=== PATIENT | female | born 1965 | race African-American/Black ===

== ENCOUNTER 2017-02-09 05:40 | Day surgery (SDC) | payer OTHER ==
[2017-02-09] VITALS (9 sets, daily range): BP systolic 120–159; BP diastolic 65–82; PULSE 81–95; RESP 15–23; Ht 162.6 cm; Wt 98.4 kg
[~2017-02-09] VITALS: Ht 162.6 cm; Wt 98.4 kg
[~2017-02-09 05:40] MED LIST: BUPIVACAINE 0.5% 30 ML VIAL INJ ONE; DEXAMETHASONE 4 MG/ML 1 ML INJ INJ ONE; IND50 PO; INSU100C SC; LANT3I SC; LIDOCAINE 1% (MPF) 30 ML INJ INJ ONE; MESA1.2T PO; METF500T4 PO; QUET300T5 PO; TEMA30CA PO; TRAM50TA2 PO
[2017-02-09] MEDS ORDERED: CEFAZOLIN 1 GM/50 ML (PMX) 50 ML IVPB SCH (06:30)
[2017-02-09] MEDS ORDERED: LIDOCAINE 1% (STERILE-PAK) 30 ML INJ ONE (07:09)
[2017-02-09] MEDS ORDERED: DEXAMETHASONE 4 MG/ML 1 ML INJ ONE (07:09)
[2017-02-09] MEDS ORDERED: BUPIVACAINE 0.5% (SDV) 30 ML INJ ONE (07:10)
[2017-02-09] MEDS ORDERED: INSU200I SQ (07:16)
[2017-02-09] MEDS ORDERED: INSU100I33 SC ×2 (07:16→07:23)
--- NOTE | 2017-02-09 07:18 | HPN ---
Date/Time of Note Date/Time of Note DATE: 02/09/17 TIME: 07:17 Interval H&P Admission Note Pt. seen H&P reviewed: No system changes EMANUEL GRAJEDA DPM Feb 09, 2017 07:18
[2017-02-09] MEDS ORDERED: MIDAZOLAM 1 MG/ML 2 ML INJ ONE (07:28)
[2017-02-09] MEDS ORDERED: PROPOFOL 20 ML ONE (07:28)
[2017-02-09] MEDS ORDERED: FENTAnyl 50 MCG/ML VIAL ONE (07:29)
[2017-02-09] MEDS ORDERED: CEFAZOLIN 1 GM INJ ONE (07:51)
--- NOTE | 2017-02-09 08:27 | SIPON ---
Date/Time of Note Date/Time of Note DATE: 02/09/17 TIME: 08:25 Operative Report Preoperative Diagnosis hallux limitus, bunion right foot Postoperative Diagnosis same Operation/Procedure Performed mecca vbunionectomy, resection of exostosis prox phal lt foot Surgeon see signature line insurance assistant none Anesthesia: MAC Estimated blood loss: none Transfusion Required none Specimen bone exostosis Grafts/Implants none Complications none EMANUEL GRAJEDA DPM Feb 09, 2017 08:27
[2017-02-09] MEDS ORDERED: hydrALAzine 20 MG INJ IV PRN (08:30)
[2017-02-09] MEDS ORDERED: MEPERIDINE 25 MG INJ IV PRN (08:30)
[2017-02-09] MEDS ORDERED: EPHEDrine SULFATE 50 MG/5 ML SYG IV PRN (08:30)
[2017-02-09] MEDS ORDERED: LABETALOL HCL 20MG INJ IV PRN (08:30)
[2017-02-09] MEDS ORDERED: ONDANSETRON 4 MG INJ IV PRN (08:30)
[2017-02-09] MEDS ORDERED: MIDAZOLAM 1 MG/ML 2 ML INJ IV PRN (08:30)
[2017-02-09] MEDS ORDERED: METOCLOPRAMIDE 10 MG INJ IV PRN (08:30)
[2017-02-09] MEDS ORDERED: DIPHENHYDRAMINE 50 MG INJ IV PRN (08:30)
[2017-02-09] MEDS ORDERED: OXYCODONE/ACETAMINOPHEN (5/325) TAB PO PRN ×2 (08:30)
[2017-02-09] MEDS ORDERED: FENTAnyl 50 MCG/ML VIAL IV PRN ×3 (08:30)
--- NOTE | 2017-02-09 12:04 | OPR ---
DATE OF OPERATION: 02/09/2017 PREOPERATIVE DIAGNOSIS: Hallux limitus and bunion deformity, right foot. POSTOPERATIVE DIAGNOSIS: Hallux limitus and bunion deformity, right foot. PROCEDURE: Kim bunionectomy right foot and resection of the bony exostosis from first metatarsal and base of the proximal phalanx. SURGEON: Waldo Camarillo DPM OPERATION PERFORMED: Patient was brought to the OR and placed in the supine position on the operating room table. Anesthesia was achieved using MAC and local with 20 mL of lidocaine 1 percent plain. The foot was then prepped and draped in the usual sterile fashion and tourniquet was inflated to 250 mmHg. Attention was directed to the dorsal aspect of the first MPJ right foot. A 4 cm linear incision was made over the first MPJ. The incision was deepened in the same plane using sharp and blunt dissection. Attention was given to the neurovascular structures and was retracted from the surgical site. Next, incision was made through the capsular layer dorsally. The head of the first metatarsal bone was released from surrounding soft tissue and the prominent bone medial aspect of the first metatarsal bone was resected using a bone saw. Also significant bone exostosis was noticed on the dorsal aspect of the first metatarsal bone and resected with a bone saw. Also some exostosis from the base of the proximal phalanx was dorsally resected. The area was then rasped smooth and flushed with a copious amount of normal saline. Next capsular closure was obtained using 3-0 Vicryl, subcutaneous closure using 4-0 Vicryl and skin closure using miki. The surgical site was then infiltrated with 5 mL of 0.5 percent Marcaine plain and 1 mL of Decadron. The surgical site was covered with Adaptic, 4 x 4 and Kerlix in a compressive fashion. Tourniquet was deflated and immediate capillary refill was noted to all digits of the right foot. The patient tolerated anesthesia and procedure well and left the OR for recovery room with vital signs stable and neurovascular status intact. Postop written and oral postop instructions were given to the patient. Patient to follow up the office in 2 days. Dictated By: Waldo Camarillo DPM /elissa/modesta /Document#: [id number]
== END 2017-02-09 10:25 | disposition home or self-care (01) ==
LOC: SDS 05:40
PROVIDERS: ATTEND Podiatrist
DX: M20.5X1 Other deformities of toe(s) (acquired), right foot (principal)
CPT/HCPCS: 28299; 82962; 88304; 88311; J0690; J1100; J2250; J3010; Z7512; Z7610

== ENCOUNTER 2018-10-21 08:14 | Emergency (ER) | payer OTHER ==
[~2018-10-21] VITALS: Ht 162.6 cm; Wt 102.5 kg
[~2018-10-21 08:14] MED LIST changes: -BUPIVACAINE 0.5% 30 ML VIAL INJ ONE; -DEXAMETHASONE 4 MG/ML 1 ML INJ INJ ONE; -IND50 PO; -INSU100C SC; +INSU100I33 SC; +INSU200I SQ; -LANT3I SC; -LIDOCAINE 1% (MPF) 30 ML INJ INJ ONE; +METF500T24 PO; -METF500T4 PO; -TEMA30CA PO; -TRAM50TA2 PO
[2018-10-21 08:19] VITALS: BP 175/86; PULSE 93; RESP 20; Ht 162.6 cm; Wt 102.5 kg
[2018-10-21] MEDS ORDERED: METF-849 PO (08:50)
[2018-10-21] MEDS ORDERED: MESA1.2T3 PO (08:50)
[2018-10-21] MEDS ORDERED: INSU100I33 SC (08:50)
--- NOTE | 2018-10-21 09:05 | ERD ---
ER Documentation Chief Complaint Chief Complaint needs medication refill PCP HPI 53-year-old female presenting for medication refill. Patient's PCP patient is currently taking Basaglar 100 units, 70 units QAM & 10 units QPM. Metformin 500mg BID and Mesalamin 1.2 gm BID. Patient history of Crohn's, diabetes and depressions. NKDA. Surgical history is myomectomy and hysterectomy. Social history smokes a pack a day. ROS All systems reviewed and are negative except as per history of present illness. Medications Home Meds Active Scripts Mesalamine (Mesalamine) 1.2 Gm Tablet., 1.2 GM PO BID, #60 Prov:FRANCISCO HANSEN PA-C 10/21/18 Metformin* (Glucophage*) 500 Mg Tab, 500 MG PO BID, #60 TAB Prov:FRANCISCO HANSEN PA-C 10/21/18 Insulin Glargine,Hum.rec.anlog (Basaglar Kwikpen U-100) 100 Unit/1 Ml Insuln.pen, 70 UNIT SC DAILY, #10 EA Prov:FRANCISCO HANSEN PA-C 10/21/18 Reported Medications Insulin Glargine,Hum.rec.anlog (Basaglar Kwikpen U-100) 100 Unit/1 Ml Insuln.pen, 10 UNIT SC AC DINNER 02/09/17 Insulin Glargine,Hum.rec.anlog (Basaglar Kwikpen U-100) 100 Unit/1 Ml Insuln.pen, 68 UNIT SC AC BREAKFAST 02/09/17 Insulin Lispro (Humalog Kwikpen) 200 Unit/1 Ml Insuln.pen, 16 UNIT SQ TID, EA 02/09/17 Mesalamine* (Lialda*) 1.2 G Tablet.dr, 1.2 GM PO BID, TAB 06/30/15 Quetiapine Fumarate* (Seroquel* XR) 300 Mg Tab.sr.24h, 300 MG PO QHS 10/09/11 Metformin Hcl* (Metformin Hcl*) 500 Mg Tablet, 500 MG PO BID, 0 Refills 01/14/11 Allergies Allergies: Coded Allergies: No Known Allergies (Verified Allergy, Unknown, 02/09/17) PMhx/Soc History of Surgery: Yes (TAHBSO, MYOMECTOMY) Anesthesia Reaction: No Hx Neurological Disorder: Yes Hx Respiratory Disorders: Yes Hx Cardiac Disorders: Yes Hx Psychiatric Problems: No Hx Miscellaneous Medical Probl: Yes (CHRONS DSE) Hx Alcohol Use: No Hx Substance Use: No Hx Tobacco Use: Yes FmHx Family History: No diabetes, No coronary disease, No other Physical Exam Vitals Vital Signs Date Temp Pulse Resp B/P (MAP) Pulse Ox O2 O2 Flow FiO2 Time Delivery Rate 10/21/18 98.1 93 20 175/86 99 08:19 (115) Physical Exam GENERAL: The patient is well-appearing, well-nourished, in no acute distress HEENT: Atraumatic. Conjunctivae are pink. Pupils equal, round, and reactive to light. There is no scleral icterus. Tympanic membranes clear bilaterally. Oropharynx clear. NECK: C-spine is soft and supple. There is no meningismus. There is no cervical lymphadenopathy. CHEST: Clear to auscultation bilaterally. There are no rales, wheezes or rhonchi. HEART: Regular rate and rhythm. No murmurs, clicks, rubs or gallops. ABDOMEN:Soft, nontender and nondistended. Good bowel sounds. No rebound or guarding. No gross peritonitis. No gross organomegaly or masses. Procedures/MDM MDM: 53-year-old female presenting for medication refill. I have low suspicion for exacerbation of chronic illnesses at this time. Patient has been up-to-date on her medications. Patient is discharged with strict ER precautions and supportive medication refills. Patient is told symptoms change or worsen to return immediately to the ER. All questions answered at discharge Departure Diagnosis: Primary Impression: Encounter for medication refill Condition: Stable Patient Instructions: Taking Medicine Safely Referrals: [facility] YOU HAVE RECEIVED A MEDICAL SCREENING EXAM AND THE RESULTS INDICATE THAT YOU DO NOT HAVE A CONDITION THAT REQUIRES URGENT TREATMENT IN THE EMERGENCY DEPARTMENT. FURTHER EVALUATION AND TREATMENT OF YOUR CONDITION CAN WAIT UNTIL YOU ARE SEEN IN YOUR DOCTORS OFFICE WITHIN THE NEXT 1-2 DAYS. IT IS YOUR RESPONSIBILITY TO MAKE AN APPOINTMENT FOR FOLOW-UP CARE. IF YOU HAVE A PRIMARY DOCTOR --you should call your primary doctor and schedule an appointment IF YOU DO NOT HAVE A PRIMARY DOCTOR YOU CAN CALL OUR PHYSICIAN REFERRAL HOTLINE AT IF YOU CAN NOT AFFORD TO SEE A PHYSICIAN YOU CAN CHOSE FROM THE FOLLOWING [facility] [address] [facility] [address] [facility] [facility] [address] [facility] [address] [facility] [facility] [address] [facility]. [facility] [address] Additional Instructions: FOLLOW UP WITH YOUR PRIMARY CARE PHYSICIAN TOMORROW.Return to this facility if you are not improving as expected. FRANCISCO HANSEN PA-C Oct 21, 2018 09:05
== END 2018-10-21 09:43 | disposition home or self-care (01) ==
LOC: FTE 08:14
DX: Z76.0 Encounter for issue of repeat prescription (principal); E11.9 Type 2 diabetes mellitus without complications; F17.210 Nicotine dependence, cigarettes, uncomplicated; Z79.4 Long term (current) use of insulin
CPT/HCPCS: 99281

== ENCOUNTER → 2018-12-14 | Emergency (ER) | payer OTHER ==
[~2018-12-14] VITALS: Ht 165.1 cm; Wt 102.3 kg
[~2018-12-14] MED LIST changes: +BLOO-1030 MC; +INSU100C SQ; +MESA1.2T2 PO; +MESA1.2T3 PO; +METF-849 PO; +NAPR-985 PO
[2018-12-14 06:51] VITALS: PULSE 90; RESP 18; Ht 165.1 cm; Wt 102.3 kg
[2018-12-14 08:44] VITALS: BP 200/94
--- NOTE | 2018-12-14 10:27 | ERD ---
ER Documentation Chief Complaint Chief Complaint abdominal pain since yesterday, has been without insulin x 3 days HPI 53-year-old female presenting with abdominal pain that started yesterday. She states her abdominal pain is resolved however she is requesting prescription refills for her chronic medications as her primary doctor has passed. Medical history hypertension, diabetes and Crohn's disease. Surgical history hysterectomy. Social history smokes cigarettes a pack a day. ROS All systems reviewed and are negative except as per history of present illness. Medications Home Meds Active Scripts Blood Sugar Diagnostic (FREESTYLE LITE TEST STRIPS) 1 Each Strip, 1 EACH MC TID, #100 STRIP Prov:FRANCISCO HANSEN PA-C 12/14/18 Insulin Lispro (Humalog) 100 Unit/1 Ml Cartridge, 100 UNIT SQ TID for 60 Days, EA 16 units TID Prov:FRANCISCO HANSEN PA-C 12/14/18 Insulin Glargine,Hum.rec.anlog (Basaglar Kwikpen U-100) 100 Unit/1 Ml Insuln.pen, 100 UNIT SC BID for 60 Days, EA 70 units QAM and 10 units Qpm Prov:FRANCISCO HANSEN PA-C 12/14/18 Metformin* (Glucophage*) 500 Mg Tab, 500 MG PO BID, #60 TAB Prov:FRANCISCO HANSEN PA-C 12/14/18 Mesalamine (Lialda) 1.2 Gm Tablet.dr, 1.2 GM PO BID, #60 Prov:FRANCISCO HANSEN PA-C 12/14/18 Mesalamine (Mesalamine) 1.2 Gm Tablet.dr, 1.2 GM PO BID, #60 Prov:FRANCISCO HANSEN PA-C 10/21/18 Metformin* (Glucophage*) 500 Mg Tab, 500 MG PO BID, #60 TAB Prov:FRANCISCO HANSEN PA-C 10/21/18 Insulin Glargine,Hum.rec.anlog (Basaglar Kwikpen U-100) 100 Unit/1 Ml Insuln.pen, 70 UNIT SC DAILY, #10 EA Prov:FRANCISCO HANSEN PA-C 10/21/18 Reported Medications Insulin Glargine,Hum.rec.anlog (Basaglar Kwikpen U-100) 100 Unit/1 Ml Insuln.pen, 10 UNIT SC AC DINNER 02/09/17 Insulin Glargine,Hum.rec.anlog (Basaglar Kwikpen U-100) 100 Unit/1 Ml Insuln.pen, 68 UNIT SC AC BREAKFAST 02/09/17 Insulin Lispro (Humalog Kwikpen) 200 Unit/1 Ml Insuln.pen, 16 UNIT SQ TID, EA 02/09/17 Mesalamine* (Lialda*) 1.2 G Tablet.dr, 1.2 GM PO BID, TAB 06/30/15 Quetiapine Fumarate* (Seroquel* XR) 300 Mg Tab.sr.24h, 300 MG PO QHS 10/09/11 Metformin Hcl* (Metformin Hcl*) 500 Mg Tablet, 500 MG PO BID, 0 Refills 01/14/11 Allergies Allergies: Coded Allergies: No Known Allergies (Verified Allergy, Unknown, 02/09/17) PMhx/Soc History of Surgery: Yes (TAHBSO, MYOMECTOMY) Anesthesia Reaction: No Hx Neurological Disorder: Yes Hx Respiratory Disorders: Yes Hx Cardiac Disorders: Yes Hx Psychiatric Problems: No Hx Miscellaneous Medical Probl: Yes (CHRONS DSE) Hx Alcohol Use: No Hx Substance Use: No Hx Tobacco Use: Yes Smoking Status: Current every day smoker FmHx Family History: No diabetes, No coronary disease, No other Physical Exam Vitals Vital Signs Date Temp Pulse Resp B/P (MAP) Pulse Ox O2 O2 Flow FiO2 Time Delivery Rate 12/14/18 200/94 08:44 (129) 12/14/18 97.8 90 18 199/84 99 06:51 (122) Physical Exam GENERAL: The patient is well-appearing, well-nourished, in no acute distress HEENT: Atraumatic. Conjunctivae are pink. Pupils equal, round, and reactive to light. There is no scleral icterus. Tympanic membranes clear bilaterally. Oropharynx clear. CHEST: Clear to auscultation bilaterally. There are no rales, wheezes or rhonchi. HEART: Regular rate and rhythm. No murmurs, clicks, rubs or gallops. No S3 or S4. ABDOMEN:Soft, nontender and nondistended. Good bowel sounds. No rebound or guarding. No gross peritonitis. No gross organomegaly or masses. Results 24 hrs Laboratory Tests Test 12/14/18 08:56 Bedside Glucose 307 mg/dL Procedures/MDM MDM: 53-year-old female presenting with abdominal pain. Patient glucose is high but patient is not displaying signs of DKA I do not feel that further blood work or imaging is indicated. Patient will be discharged with supportive medications and she states that she feels fine just wants medications and to follow-up with her new primary doctor. Patient is told if symptoms change or worsen to immediately return to the ER. All questions answered at discharge Departure Diagnosis: Primary Impression: Encounter for medication refill Condition: Stable Patient Instructions: Taking Medicine Safely Referrals: [facility] YOU HAVE RECEIVED A MEDICAL SCREENING EXAM AND THE RESULTS INDICATE THAT YOU DO NOT HAVE A CONDITION THAT REQUIRES URGENT TREATMENT IN THE EMERGENCY DEPARTMENT. FURTHER EVALUATION AND TREATMENT OF YOUR CONDITION CAN WAIT UNTIL YOU ARE SEEN IN YOUR DOCTORS OFFICE WITHIN THE NEXT 1-2 DAYS. IT IS YOUR RESPONSIBILITY TO MAKE AN APPOINTMENT FOR FOLOW-UP CARE. IF YOU HAVE A PRIMARY DOCTOR --you should call your primary doctor and schedule an appointment IF YOU DO NOT HAVE A PRIMARY DOCTOR YOU CAN CALL OUR PHYSICIAN REFERRAL HOTLINE AT IF YOU CAN NOT AFFORD TO SEE A PHYSICIAN YOU CAN CHOSE FROM THE FOLLOWING [facility] [address] [facility]. [facility] [address] [facility] [facility] [address] [facility]. [facility] [address] [facility]. [facility] [address] [facility]. [facility]. [address] Additional Instructions: FOLLOW UP WITH YOUR PRIMARY CARE PHYSICIAN TOMORROW.Return to this facility if you are not improving as expected. FRANCISCO HANSEN PA-C Dec 14, 2018 10:27
== END | disposition home or self-care (01) ==
LOC: FTE 06:48
DX: Z76.0 Encounter for issue of repeat prescription (principal); I10 Essential (primary) hypertension; E11.9 Type 2 diabetes mellitus without complications; F17.210 Nicotine dependence, cigarettes, uncomplicated; Z79.4 Long term (current) use of insulin
CPT/HCPCS: 82962; Z7502; 99281

== ENCOUNTER 2018-12-22 11:29 | Emergency (ER) | payer OTHER ==
[~2018-12-22] VITALS: Ht 162.6 cm; Wt 101.0 kg
[2018-12-22 11:32] VITALS: BP 164/71; PULSE 100; RESP 20; Ht 162.6 cm; Wt 101.0 kg
--- NOTE | 2018-12-22 13:32 | ERD ---
ER Documentation Chief Complaint Chief Complaint right foot pain, cramoing and feels numb since yesterday evening HPI 53-year-old female presenting with pain to the right foot. Patient states yesterday she had a intense cramp to her right calf and up after about 10 minutes at relaxant but has caused pain ever since. She denies other medical problems. She denies any traumatic injuries. She denies any obvious swelling to the affected area. Nickel history is diabetes. NKDA. Surgical history of ovarian surgery and . Social history denies ROS All systems reviewed and are negative except as per history of present illness. Medications Home Meds Active Scripts Naproxen* (Naprosyn*) 500 Mg Tablet, 500 MG PO BID PRN for PAIN AND/OR INFLAMMATION, #30 TAB Prov:FRANCISCO HANSEN PA-C 12/22/18 Blood Sugar Diagnostic (FREESTYLE LITE TEST STRIPS) 1 Each Strip, 1 EACH MC TID, #100 STRIP Prov:FRANCISCO HANSEN PA-C 12/14/18 Insulin Lispro (Humalog) 100 Unit/1 Ml Cartridge, 100 UNIT SQ TID for 60 Days, EA 16 units TID Prov:FRANCISCO HANSEN PA-C 12/14/18 Insulin Glargine,Hum.rec.anlog (Gloriaaglpaul Sim U-100) 100 Unit/1 Ml Insuln.pen, 100 UNIT SC BID for 60 Days, EA 70 units QAM and 10 units Qpm Prov:FRANCISCO HANSEN PA-C 12/14/18 Metformin* (Glucophage*) 500 Mg Tab, 500 MG PO BID, #60 TAB Prov:FRANCISCO HANSEN PA-C 12/14/18 Mesalamine (Lialda) 1.2 Gm Tablet., 1.2 GM PO BID, #60 Prov:FRANCISCO HANSEN PA-C 12/14/18 Mesalamine (Mesalamine) 1.2 Gm Tablet.dr, 1.2 GM PO BID, #60 Prov:FRANICSCO HANSEN PA-C 10/21/18 Metformin* (Glucophage*) 500 Mg Tab, 500 MG PO BID, #60 TAB Prov:FRANCISCO HANSEN PA-C 10/21/18 Insulin Glargine,Hum.rec.anlog (Basaglar Kwikpen U-100) 100 Unit/1 Ml Insuln.pen, 70 UNIT SC DAILY, #10 EA Prov:FRANCISCO HANSEN Malena DOLL 10/21/18 Reported Medications Insulin Glargine,Hum.rec.anlog (Basaglar Kwikpen U-100) 100 Unit/1 Ml Insuln.pen, 10 UNIT SC AC DINNER 02/09/17 Insulin Glargine,Hum.rec.anlog (Basaglar Kwikpen U-100) 100 Unit/1 Ml Insuln.pen, 68 UNIT SC AC BREAKFAST 02/09/17 Insulin Lispro (Humalog Kwikpen) 200 Unit/1 Ml Insuln.pen, 16 UNIT SQ TID, EA 02/09/17 Mesalamine* (Lialda*) 1.2 G Tablet.dr, 1.2 GM PO BID, TAB 06/30/15 Quetiapine Fumarate* (Seroquel* XR) 300 Mg Tab.sr.24h, 300 MG PO QHS 10/09/11 Metformin Hcl* (Metformin Hcl*) 500 Mg Tablet, 500 MG PO BID, 0 Refills 01/14/11 Allergies Allergies: Coded Allergies: No Known Allergies (Verified Allergy, Unknown, 02/09/17) PMhx/Soc History of Surgery: Yes (HYSTERECTOMY, RT FOOT SURGERY) Anesthesia Reaction: No Hx Neurological Disorder: No Hx Respiratory Disorders: No Hx Cardiac Disorders: Yes (HTN) Hx Psychiatric Problems: No Hx Miscellaneous Medical Probl: Yes (CROHN'S DIS) Hx Alcohol Use: No Hx Substance Use: Yes (SMOKES MARIJUANA) Hx Tobacco Use: Yes Smoking Status: Current every day smoker FmHx Family History: No diabetes, No coronary disease, No other Physical Exam Vitals Vital Signs Date Temp Pulse Resp B/P (MAP) Pulse Ox O2 O2 Flow FiO2 Time Delivery Rate 12/22/18 99.9 100 20 164/71 97 11:32 (102) Physical Exam GENERAL: The patient is well-appearing, well-nourished, in no acute distress CHEST: Clear to auscultation bilaterally. There are no rales, wheezes or rhonchi. HEART: Regular rate and rhythm. No murmurs, clicks, rubs or gallops. BACK: No midline or flank tenderness. EXTREMITIES: Equal pulses bilaterally. There is no peripheral clubbing, cyanosis or edema. No focal swelling or erythema. Full range of motion. Grossly neurovascularly intact. No swelling to right calf NEUROLOGIC: Alert and oriented. Cranial nerves II through XII intact. Motor strength in all 4 extremities with 5 out of 5 strength. Sensation grossly intact. Normal speech and gait. Result Diagram: 12/22/18 1205 12/22/18 1205 Results 24 hrs Laboratory Tests Test 12/22/18 12:05 White Blood Count 11.0 10^3/ul Red Blood Count 4.13 10^6/ul Hemoglobin 12.2 g/dl Hematocrit 37.5 % Mean Corpuscular Volume 90.8 fl Mean Corpuscular Hemoglobin 29.5 pg Mean Corpuscular Hemoglobin Concent 32.5 g/dl Red Cell Distribution Width 14.6 % Platelet Count 323 10^3/UL Mean Platelet Volume 10.9 fl Immature Granulocytes % 0.300 % Neutrophils % % Segmented Neutrophils % (Manual) 41 % Lymphocytes % % Lymphocytes % (Manual) 56 % Reactive Lymphocytes % (Manual) 1 % Monocytes % % Monocytes % (Manual) 2 % Eosinophils % % Basophils % % Nucleated Red Blood Cells % 0.0 /100WBC Immature Granulocytes # 0.030 10^3/ul Neutrophils # 10^3/ul Lymphocytes (Manual) 6.1 10^3/ul Lymphocytes # 10^3/ul Reactive Lymphocytes # 0.1 10^3/ul Monocytes # 10^3/ul Monocytes # (Manual) 0.2 10^3/ul Eosinophils # 10^3/ul Basophils # 10^3/ul Nucleated Red Blood Cells # 10^3/ul Platelet Estimate NORMAL Polychromasia 1+ Anisocytosis 1+ Sodium Level 136 mmol/L Potassium Level 3.9 mmol/L Chloride Level 102 mmol/L Carbon Dioxide Level 27 mmol/L Anion Gap 7 Blood Urea Nitrogen 14 mg/dl Creatinine 0.66 mg/dl Est Glomerular Filtrat Rate mL/min > 60 mL/min Glucose Level 302 mg/dl Calcium Level 9.2 mg/dl Total Bilirubin 0.3 mg/dl Direct Bilirubin 0.00 mg/dl Indirect Bilirubin 0.3 mg/dl Aspartate Amino Transf (AST/SGOT) 18 IU/L Alanine Aminotransferase (ALT/SGPT) 18 IU/L Alkaline Phosphatase 123 IU/L Total Protein 7.4 g/dl Albumin 3.9 g/dl Globulin 3.50 g/dl Albumin/Globulin Ratio 1.11 Procedures/MDM MDM: 53-year-old female presenting with leg pain. I have low suspicion for DVT. I have low suspicion for infectious process. I have low suspicion for electrolyte abnormality. Patient is discharged with strict ER precautions and told to follow-up with primary care within 1 to 2 days for close evaluation. Patient is told if symptoms change or worsen to return immediately to the ER. All questions answered at discharge Departure Diagnosis: Primary Impression: Muscle spasm Condition: Stable Patient Instructions: Muscle Spasm Referrals: [facility] YOU HAVE RECEIVED A MEDICAL SCREENING EXAM AND THE RESULTS INDICATE THAT YOU DO NOT HAVE A CONDITION THAT REQUIRES URGENT TREATMENT IN THE EMERGENCY DEPARTMENT. FURTHER EVALUATION AND TREATMENT OF YOUR CONDITION CAN WAIT UNTIL YOU ARE SEEN IN YOUR DOCTORS OFFICE WITHIN THE NEXT 1-2 DAYS. IT IS YOUR RESPONSIBILITY TO MAKE AN APPOINTMENT FOR FOLOW-UP CARE. IF YOU HAVE A PRIMARY DOCTOR --you should call your primary doctor and schedule an appointment IF YOU DO NOT HAVE A PRIMARY DOCTOR YOU CAN CALL OUR PHYSICIAN REFERRAL HOTLINE AT IF YOU CAN NOT AFFORD TO SEE A PHYSICIAN YOU CAN CHOSE FROM THE FOLLOWING [facility] [address] [facility] [address] [facility] [facility] [address] [facility] [facility] [address] [facility] [address] [facility]. [facility]. [address] Additional Instructions: FOLLOW UP WITH YOUR PRIMARY CARE PHYSICIAN TOMORROW.Return to this facility if you are not improving as expected. FRANCISCO HANSEN PA-C Dec 22, 2018 13:32
== END 2018-12-22 12:50 | disposition home or self-care (01) ==
LOC: FTE 11:29
DX: M62.838 Other muscle spasm (principal); I10 Essential (primary) hypertension; F17.210 Nicotine dependence, cigarettes, uncomplicated; E11.9 Type 2 diabetes mellitus without complications; Z79.4 Long term (current) use of insulin
CPT/HCPCS: 36415; 80053; 85025; Z7502; 99283